=== PATIENT | male | born 1960 | race Caucasian/White ===

== ENCOUNTER → 2016-10-04 | Day surgery (SDC) | payer OTHER ==
[~2016-10-04] MED LIST: ALFUZOSIN HCL E10 MG PO; ALPRAZOLAM0.25 MG PO; AMLODIPINE BESYL5 MG PO; ASPIRINEC PO; AVODART0.5 MG PO; HYTRIN PO; HYTRIN10 M1 PO; NEXIUM PO; NORVASC PO; WELLBUTRIN PO
--- NOTE | ~2016-10-04 | OR ---
Unit #: [id number] #: [id number] Patient: LAWSON SHERMAN [id number] [address] [place], [place] [address] [id number] MR#: [id number] NAME: LAWSON SHERMAN ROOM: Date of Procedure: 10/04/2016 Admission Date: 10/04/2016 Surgeon: Donavan Mota Jr., M.D. : 1960 Attending Physician: Donavan Mota Jr., M.D. Referring Physician: Donavan Mota Jr., M.D. Primary Care Physician: Gerald Campoverde M.D. OPERATIVE REPORT INDICATION FOR PROCEDURE The patient is a 55-year-old white male, who presents desiring screening colonoscopy. His last colonoscopy was approximately 10 years ago. He has had no change in bowel habits, no rectal bleeding, and no other problems. He has had his prep at home. He understands the procedure including the risks including that of perforation and bleeding, and consents. PREOPERATIVE DIAGNOSIS Desired screening colonoscopy, rule out pathology. POSTOPERATIVE DIAGNOSIS Normal colonoscopy to the distal ileum. ANESTHESIA MAC anesthesia. PROCEDURE PERFORMED Flexible colonoscopy to the distal ileum. DESCRIPTION OF PROCEDURE The patient was positioned in Fraser position with left side down. After being given MAC anesthesia, digital rectal examination was performed, which revealed no palpable mass or tenderness. No blood or stool in the rectal ampulla. Prostate was normal by palpation. The Olympus colonoscope was advanced through the anal canal up the rectum and retroflexed down to the area of the anorectal region. There were no fissures. No significant internal hemorrhoids. The scope was then straightened and advanced up the rectosigmoid, in the sigmoid and descending colon areas, around the splenic flexure and the transverse colon, around hepatic flexure and the ascending colon, down the area of the cecum. Light from the tip of the scope could be seen transilluminating through right lower quadrant abdominal wall area. The scope was advanced up the distal ileum approximately 10 to 12 inches. There was no evidence of any ileitis or inflammatory bowel disease. The scope was slowly removed. There were no tumors, polyps, or cancer. No AVMs. No evidence of any colitis, diverticulosis, or diverticulitis. The caliber of the colon appeared normal throughout. Final impression on examination, normal exam. The scope was removed. The patient tolerated the procedure well and discharged in satisfactory condition. Dictated by... Unit #: [id number] #: [id number] Patient: LAWSON SHERMAN Jr., MEarline TREJO/renetta TD: 10/04/2016 08:01 JOB #: [id number] OPERATIVE REPORT Page 1 of 1 X Donavan Mota MD X PROCEDURE OPERATIVE NOTE
== END | disposition home or self-care (01) ==
LOC: COPS 05:39
PROVIDERS: Surgery
PROC: 0DJD8ZZ Inspection of Lower Intestinal Tract, Via Natural or Artificial Opening Endoscopic (ICD-10-PCS; principal; 2016-10-04 07:00)
DX: Z12.11 Encounter for screening for malignant neoplasm of colon (principal); I10 Essential (primary) hypertension; N40.0 Benign prostatic hyperplasia without lower urinary tract symptoms; F41.9 Anxiety disorder, unspecified; Z79.899 Other long term (current) drug therapy; Z87.891 Personal history of nicotine dependence; Z98.890 Other specified postprocedural states; Z98.52 Vasectomy status
CPT/HCPCS: J2250